=== PATIENT | female | born 2000 | race Two or more races ===

== ENCOUNTER → 2024-10-24 | Outpatient (CLI) | payer BC, SELFPAY ==
--- NOTE | 2024-10-24 12:00 | XR_ITS ---
Examination: MRI brain without intravenous contrast. Date and time of exam: November 03, 2024 1115 hrs. Indications: Right-sided headaches with dizziness vertigo one year worse the last 2 months Technique: Multiple axial and sagittal images of the brain obtained. Siemens high-resolution 1.5 Ignacia short bore scanners utilized. Sagittal sections, T1-weighted, TR 500, TE 14, are performed. Axial sections proton-density and T2-weighted have been obtained. Inversion recovery axial images, TR 9, 260, TE 111, TI 2500. 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
== END | disposition home or self-care (01) ==
PROVIDERS: PCP Nurse Practitioner Family; Referring Provider Nurse Practitioner Family; Visit Provider Nurse Practitioner Family
DX: R22.0 Localized swelling, mass and lump, head (principal)
CPT/HCPCS: 70551

== ENCOUNTER → 2024-10-27 | Outpatient (BNVA) | payer BC, SELFPAY | END | disposition home or self-care (01) | PROVIDERS: PCP Nurse Practitioner Family; Referring Provider Nurse Practitioner Family; Visit Provider Nurse Practitioner Family | DX: G43.919 Migraine, unspecified, intractable, without status migrainosus (principal); Z71.2 Person consulting for explanation of examination or test findings; Z01.810 Encounter for preprocedural cardiovascular examination; G93.0 Cerebral cysts | CPT/HCPCS: 99212; G0463 ==

== ENCOUNTER → 2024-12-10 | Outpatient (CLI) | payer BC, SELFPAY ==
--- NOTE | 2024-12-10 11:00 | XR_ITS ---
Examination: CT brain head with intravenous contrast 2-D sagittal reconstructions. 2-D coronal reconstructions. 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 Post intravenous administration 50 cc Isovue-370 5 mm slice thickness images have been obtained. Low dose protocols were performed. One or more of the following dose reduction techniques were used; automated exposure control, adjustment of the mA and/or KV according to patient size, use of iterative reconstruction technique. Findings: Ventricles are normal in size and configuration No midline shift The mass noted on the brain MRI examination anterior to the brainstem is not clearly depicted on this study Cranial vault appears intact IMPRESSION: This patient should return for brain MRI images post contrast including small [id number] high-resolution images centered at the prepontine cistern
[2024-12-10 12:26] LABS: HCG Qualitative,Urine Negative
== END | disposition home or self-care (01) ==
PROVIDERS: PCP Nurse Practitioner Family; Referring Provider Nurse Practitioner Family; Visit Provider Nurse Practitioner Family
DX: D33.2 Benign neoplasm of brain, unspecified (principal); Z32.00 Encounter for pregnancy test, result unknown
CPT/HCPCS: 70460; 81025; A4649; Q9967

== ENCOUNTER → 2024-12-11 | Outpatient (BNVA) | payer BC, SELFPAY | END | disposition home or self-care (01) | PROVIDERS: PCP Nurse Practitioner Family; Referring Provider Nurse Practitioner Family; Visit Provider Nurse Practitioner Family | DX: N91.1 Secondary amenorrhea (principal) | CPT/HCPCS: 99212; G0463 ==

== ENCOUNTER → 2024-12-18 | Outpatient (BNVA) | payer BC, SELFPAY | END | disposition home or self-care (01) | PROVIDERS: PCP Nurse Practitioner Family; Referring Provider Nurse Practitioner Family; Visit Provider Nurse Practitioner Family | DX: D33.2 Benign neoplasm of brain, unspecified (principal); Z30.011 Encounter for initial prescription of contraceptive pills; Z71.2 Person consulting for explanation of examination or test findings | CPT/HCPCS: 99214 ==

== ENCOUNTER → 2025-04-14 | Outpatient (BNVA) | payer BC, SELFPAY | END | disposition home or self-care (01) | PROVIDERS: PCP Nurse Practitioner Family; Referring Provider Nurse Practitioner Family; Visit Provider Nurse Practitioner Family | DX: R00.2 Palpitations (principal); Z30.011 Encounter for initial prescription of contraceptive pills | CPT/HCPCS: 81025; 99213 ==

== ENCOUNTER → 2025-05-10 | Outpatient (CLI) | payer BC, SELFPAY ==
[2025-03-31 15:12] LABS: HCG Qualitative,Urine Negative
[2025-05-10 12:22] LABS: HCG Qualitative,Urine Negative
--- NOTE | 2025-05-10 12:26 | XR_ITS ---
Examination: MRI brain with intravenous contrast TECHNIQUE: Multiple axial sagittal coronal brain MRI images post intravenous administration 18 cc gadolinium Date and time: May 10, 2025 1228 hours COMPARISON: CT brain scan December 10, 2024, brain MRI October 24, 2024 INDICATIONS: Headaches dizziness beginning July 2024, 19 x 12 x 28 mm ovoid mass anterior to the brainstem on FLAIR image 8 on brain MRI October 24, 2024 FINDINGS: Nonenhancing ovoid mass 19 x 12 x 28 mm is again noted anterior to the brainstem axial image 10, coronal image 11 The ventricles are not enlarged No abnormal enhancing cerebellar or cerebral lesions IMPRESSION: Nonenhancing cystic area 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
== END | disposition home or self-care (01) ==
LOC: SMRI 11:44
PROVIDERS: PCP Nurse Practitioner Family; Referring Provider Nurse Practitioner Family; Visit Provider Nurse Practitioner Family
DX: D33.2 Benign neoplasm of brain, unspecified (principal)
CPT/HCPCS: 70552; 81025; A9579

== ENCOUNTER 2025-05-11 08:51 | Outpatient (AMB) | payer BC, SELFPAY ==
--- NOTE | 2025-05-11 08:56 | GYNCLNT_ITS ---
Vital Signs 05/11/25 09:05 Height 1.73 m Height Method Stated Weight 92.703 kg Weight Measurement Method Standing Scale BMI 30.9 BP 112/78 Blood Pressure Source Automatic Cuff Blood Pressure Location Right Upper Arm Position Sitting Respiration 17 Pulse 80 Pulse Source Monitor Temp 97.8 F Temp Source Temporal Artery Scan Pulse Oximetry (%) 98 Oxygen Delivery Method Room Air Allergies/Home Meds Allergies & Medications Allergies No Known Allergies Allergy (Verified 06/11/25 09:33) Medication Reconciliation propranolol 20 mg tablet 20 mg PO BID 90 days #180 tabs 04/14/25 [Rx Confirmed 06/11/25] Intake Visit Data Collection New Patient or Established: Established Patient (seen at [facility] within 3 years) Reason for Visit:: IRREGULAR MENSES Seen by Clinical Staff ONLY (RN/MA): No Workers' Compensation Mediator Required: No Do You Feel Safe at Home: Yes Authorities Contacted: N/A PCP or OBGYN visit in last 3 months: Yes Date of Last PCP or OBGYN visit: 04/14/25 Hx Now: No Are you currently on any form of Control: Yes Last menstrual period: 05/08/25 Pain Present Currently: No Pain Scale Used: Johnson-Garrido/Numerical Pain scale:: 0 Smoking Status Smoking Status: Never smoker 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 1. Little interest or pleasure in doing things: not at all 2. Feeling down, depressed, or hopeless: not at all Total score: 0 PHQ-9 3. Trouble falling or staying asleep, or sleeping too much: Not at all 4. Feeling tired or having little energy: Not at all 5. Poor appetite or overeating: Not at all 6. Feeling bad about yourself - or that you are a failure or have let yourself or your family down: Not at all 7. Trouble concentrating on things, such as reading the newspaper or watching television: Not at all 8. Moving or speaking so slowly that other people could have noticed? - Or the opposite - being so fidgety or restless that you have been moving around a lot more than usual: not at all 9. Thoughts that you would be better off or of hurting yourself in some way: Not at all Total score: 0 If you checked off any problems, how difficult have these problems made it for you to do your work, take care of things at home, or get along with other people?: not difficult at all Source: Developed by Drs. Wellington Barrios, Allison Harry, Lamberto Mccarthy and colleagues, with an educational siri from [employer]. Depression screen completed yes Social History Living Situation History Marital Status: Lives With: Family Housing: House Tobacco History Smoking Status: Never smoker Second Hand Smoke Exposure: No Alcohol History Alcohol Intake: Current Alcohol Intake Frequency: holidays/special occasions only Substance Use History Substance Use: NONE Domestic Abuse History Do You Feel Safe at Home: Yes History of Present Illness HPI Narrative Radha Baker, a 24-year-old female with a history of in 2021, presents with irregular menses and difficulty conceiving. The patient reports that her menstrual irregularities began approximately one year ago, with her periods becoming very light about 3-4 months prior to completely stopping in November 2024. Prior to the onset of these irregularities, Radha states she had regular 30-day menstrual cycles. She was prescribed control pills by her primary care physician, Dr. Bailey, to regulate her cycle. The first period after starting the pills lasted about 11 days. However, Radha reports that her periods have re mained inconsistent since then. She describes her current menstrual pattern as having light bleeding for 2 days the week before her expected period, followed by a very light actual period. Radha mentions that she is currently trying to conceive. She was recently prescribed control pills again in March 2025 due to not getting her period fully. However, she reports taking the pills inconsistently and completely stopping them after experiencing bleeding on April 30 and 2024. The patient also discloses a history of an early miscarriage a couple of months after giving to her daughter in 2021. She was prescribed medication by Dr. Philip to assist with the miscarriage process. Radha denies any history of ovarian cysts or fibroids. Obstetric History: - GTPAL: G3 T1 L1 - Current : Not currently - history: - Early miscarriage a few months after giving in 2021 - Delivered a child via in 2021 Medical History: - Early miscarriage a few months after giving Surgical History: - section in 2021 Medications and Supplements: - Progesterone-only mini-pill (tolerates well, stopped taking on May 01, 2025) - control pills (initially resulted in an 11-day period, then became inconsistent, stopped taking to try to conceive) - Medication prescribed by Dr. Philip for early miscarriage (taken a few months after giving ) Social History: - Children: Has at least one child born in 2021 ROS: Genitourinary: Positive for irregular menses, light menstrual flow, and amenorrhea. Exam General General Appearance: alert, in no apparent distress and healthy appearing Head Head exam: atraumatic Neck Neck exam: Present normal inspection and trachea midline Chest Chest inspection: Present normal inspection and symmetric chest wall rise External exam: Present normal external exam; Absent tenderness Neuro Neurological exam: Present oriented X3 Psych Psychiatric exam: Present normal affect and normal mood Office Procedures OB Clinic LOC & Office Proc's Nursing/Assessment Patient Status: Established Patient OB Clinic Nursing Assessment: Medication Reconciliation, Update PMH in EMR and Vital Signs OB Clinic Coordination of Care: Complex Care and Chronic Disease 1-5, Con sent,records obtained, informed consent, Education Simp Pt/Fam and Staff clarify orders Established Patient Charge Established Patient Point Assignment: 85 Established Patient Point Charge: EP Level 3 (80-115) Assessment & Plan Diagnosis / Problem List (1) Abnormal uterine and vaginal bleeding, unspecified: Status: Acute Plan Irregular Menses Assessment: Patient reports irregular menses since November 2024, with periods becoming light and eventually stopping. This pattern suggests an anovulatory cycle. Patient was previously prescribed progesterone-only mini-pill by her PCP, which she has been taking inconsistently. Last menstrual period was on April 302024, described as very light. Plan: - Discontinue current progesterone-only mini-pill - Prescribe new medication for 3 weeks to regulate menstrual cycle ? Patient instructed to take only the newly prescribed medication - Order hormone panel blood tests to be conducted on first or second day of next menstrual period ? Tests to include DHE, FSH, LH, TSH - Follow-up appointment scheduled in 4 weeks to review blood test results - Based on hormone levels, plan to initiate ovulation induction medication (Clomid or Femara) - Counseled patient on expected bleeding patterns and timing for blood tests Subfertility Assessment: Patient expresses desire to conceive. Current irregular menses and anovulatory cycles are impacting fertility. Previous obstetrical history includes one child delivered via in 2021 and an early miscarriage. No known history of cysts or fibroids. Plan: - Complete hormone evaluation as outlined in irregular menses plan - Defer ultrasound evaluation at this time - Plan to initiate ovulation induction medication (Clomid or Femara) based on hormone panel results - Educate patient on importance of consistent medication use and timing of intercourse for conception - Follow-up appointment in 4 weeks to discuss results and initiate fertility treatment plan
[2025-05-11 09:05] VITALS: BP 112/78; PULSE 80; RESP 17; TEMP 36.6; O2SAT 98; BMI 30.9
== END 2025-05-11 09:55 | disposition home or self-care (01) ==
LOC: HODSOBC 08:51
PROVIDERS: PCP Nurse Practitioner Family; Referring Provider Nurse Practitioner Family; Supervising Provider Obstetrics & Gynecology; Visit Provider Obstetrics & Gynecology
DX: N92.6 Irregular menstruation, unspecified (principal)
CPT/HCPCS: 99213; G0463

== ENCOUNTER → 2025-05-19 | Outpatient (BNVA) | payer BC, SELFPAY | END | disposition home or self-care (01) | PROVIDERS: PCP Nurse Practitioner Family; Referring Provider Nurse Practitioner Family; Visit Provider Nurse Practitioner Family | DX: G93.0 Cerebral cysts (principal); E78.2 Mixed hyperlipidemia | CPT/HCPCS: 99212; G0463 ==

== ENCOUNTER → 2025-05-31 | Outpatient (BNVA) | payer BC, SELFPAY | END | disposition home or self-care (01) | PROVIDERS: PCP Nurse Practitioner Family; Referring Provider Nurse Practitioner Family; Visit Provider Nurse Practitioner Family | DX: Z00.01 Encounter for general adult medical examination with abnormal findings (principal); M41.9 Scoliosis, unspecified; R73.03 Prediabetes; E78.2 Mixed hyperlipidemia; E66.9 Obesity, unspecified; Z68.30 Body mass index [BMI] 30.0-30.9, adult; E55.9 Vitamin D deficiency, unspecified; R00.2 Palpitations; G43.909 Migraine, unspecified, not intractable, without status migrainosus | CPT/HCPCS: 99173; 99215 ==

== ENCOUNTER → 2025-06-07 | Outpatient (BNVA) | payer BC, SELFPAY | END | disposition home or self-care (01) | PROVIDERS: PCP Nurse Practitioner Family; Referring Provider Nurse Practitioner Family; Visit Provider Nurse Practitioner Family | DX: E01.0 Iodine-deficiency related diffuse (endemic) goiter (principal); J02.9 Acute pharyngitis, unspecified; R13.10 Dysphagia, unspecified | CPT/HCPCS: 87811; 99215 ==

== ENCOUNTER → 2025-06-14 | Outpatient (BNVA) | payer BC, SELFPAY | END | disposition home or self-care (01) | PROVIDERS: PCP Nurse Practitioner Family; Referring Provider Nurse Practitioner Family; Visit Provider Nurse Practitioner Family | DX: Z71.2 Person consulting for explanation of examination or test findings (principal); E01.0 Iodine-deficiency related diffuse (endemic) goiter; R13.10 Dysphagia, unspecified; E78.2 Mixed hyperlipidemia | CPT/HCPCS: 99212; G0463 ==

== ENCOUNTER 2025-06-18 09:06 | Outpatient (AMB) | payer BC, SELFPAY ==
[2025-06-18 09:13] VITALS: BP 111/75; PULSE 90; RESP 17; TEMP 36.4; O2SAT 97; BMI 30.6
--- NOTE | 2025-06-18 09:13 | GYNCLNT_ITS ---
Vital Signs 06/18/25 09:13 Height 1.73 m Height Method Measured Weight 91.626 kg Weight Measurement Method Standing Scale BMI 30.6 BP 111/75 Blood Pressure Source Automatic Cuff Blood Pressure Location Right Upper Arm Position Sitting Respiration 17 Pulse 90 Pulse Source Monitor Temp 97.5 F Temp Source Temporal Artery Scan Pulse Oximetry (%) 97 Oxygen Delivery Method Room Air Allergies/Home Meds Allergies & Medications Allergies No Known Allergies Allergy (Verified 06/18/25 09:13) Medication Reconciliation propranolol 20 mg tablet 20 mg PO BID 90 days #180 tabs 04/14/25 [Rx Confirmed 06/18/25] ergocalciferol (vitamin D2) 1,250 mcg (50,000 unit) capsule 50,000 unit PO QWEEK 12 weeks #12 caps 06/14/25 [Rx Confirmed 06/18/25] estradiol 1 mg tablet 1 mg PO QDAY 7 days #7 tabs 06/18/25 [Rx] medroxyprogesterone 10 mg tablet (Provera) 10 mg PO QDAY 7 days #7 tabs 06/18/25 [Rx] ondansetron 4 mg disintegrating tablet 4 mg PO Q6H PRN nausea and vomiting 7 days #20 tabs 06/18/25 [Rx] Intake Visit Data Collection New Patient or Established: Established Patient (seen at [facility] within 3 years) Reason for Visit:: AUB, Secondary Amenorrhea Consent obtained for Telemed Visit: No Seen by Clinical Staff ONLY (RN/MA): No 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: No Do You Feel Safe at Home: Yes Authorities Contacted: N/A PCP or OBGYN visit in last 3 months: Yes Date of Last PCP or OBGYN visit: 06/11/25 Hx Now: No Are you currently on any form of Control: No Last menstrual period: 04/30/25 Pain Present Currently: No Pain Scale Used: Johnson-Garrido/Numerical Pain scale:: 0 Smoking Status Smoking Status: Never smoker 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 1. Little interest or pleasure in doing things: not at all PHQ-9 8. Moving or speaking so slowly that other people could have noticed? - Or the opposite - being so fidgety or restless that you have been moving around a lot more than usual: not at all Source: Developed by Drs. Wellington Barrios, Allison Harry, Lamberto Mccarthy and colleagues, with an educational siri from [employer]. Social History Living Situation History Lives With: Family Housing: House Tobacco History Smoking Status: Never smoker Second Hand Smoke Exposure: No Alcohol History Alcohol Intake: Current Alcohol Intake Frequency: holidays/special occasions only Substance Use History Substance Use: NONE Domestic Abuse History Do You Feel Safe at Home: Yes History of Present Illness HPI Narrative Patient reports that she has not had a menstrual period since stopping her control pills about a month and a half ago. She was previously given progesterone medication to induce menstruation, which she took for an unspecified number of days, but this did not result in a period. Due to the absence of menstruation, the patient has not completed the previously recommended laboratory tests for fertility evaluation. She is a female patient presenting for follow-up of infertility evaluation. She was last seen approximately one month ago after discontinuing her progesterone- only minipill. Radha has not reported any other symptoms or concerns related to her fertility or general health. She has adhered to the recommendation of discontinuing her control but has been unable to proceed with further testing due to the absence of her menstrual cycle. She has discontinued the progesterone-only minipill and has taken progesterone for an unspecified number of days, which did not induce menstruation. Exam General General Appearance: alert, in no apparent distress and healthy appearing Head Head exam: atraumatic Neck Neck exam: Present normal inspection and trachea midline Chest Chest inspection: Present normal inspection and symmetric chest wall rise External exam: Present normal external exam; Absent tenderness Neuro Neurological exam: Present oriented X3 Psych Psychiatric exam: Present normal affect and normal mood Office Procedures OB Clinic LOC & Office Proc's Nursing/Assessment Patient Status: Established Patient OB Clinic Nursing Assessment: Medication Reconciliation, Update PMH in EMR and Vital Signs OB Clinic Coordination of Care: Complex Care and Chronic Disease 1-5, Consent,records obtained, informed consent, Education Simp Pt/Fam and Staff clarify orders Established Patient Charge Established Patient Point Assignment: 85 Established Patient Point Charge: EP Level 3 (80-115) Results Urine HCG Urine HCG Negative Last Edit by Rebecca Anthony MA on 06/18/25 09:38 Assessment & Plan Diagnosis / Problem List (1) Abnormal uterine and vaginal bleeding, unspecified: Status: Acute Plan Secondary amenorrhea: - Patient discontinued progesterone-only minipill approximately 1.5 months ago. - No menstrual period since discontinuation. - test during visit was negative. - Previous attempt to induce menses with progesterone-only medication unsuccessful. - Prescribe combination estrogen and progesterone medication for 7 days. - Instruct patient to call if menses does not occur within 2 days after completing medication course. - If menses occurs, patient to complete previously ordered blood tests and return for follow-up. - Prescribe Zofran for potential nausea associated with hormonal medication. - Send prescriptions to [facility] pharmacy. Infertility: - Patient undergoing infertility evaluation. - Previous recommendations included laboratory testing and potential ovulation induction with Clomid or Femara. - Steps deferred due to lack of menstrual cycle. - Proceed with previously ordered laboratory tests once menstrual cycle is established. - Follow up to discuss lab results and potential initiation of ovulation sydnie ction therapy (Clomid or Femara).
== END 2025-06-18 09:49 | disposition home or self-care (01) ==
LOC: HODSOBC 09:06
PROVIDERS: Supervising Provider Obstetrics & Gynecology; Visit Provider Obstetrics & Gynecology
DX: N93.9 Abnormal uterine and vaginal bleeding, unspecified (principal); N97.9 Female infertility, unspecified
CPT/HCPCS: 99213; G0463

== ENCOUNTER → 2025-07-05 | Outpatient (CLI) | payer BC, SELFPAY ==
[2025-07-05 16:13] LABS: Basophils # (Auto) 0.0 Thou/mm3 (0.0-0.2); Basophils % (Auto) 0 % (0-2.5); Eosinophils # (Auto) 0.2 Thou/mm3 (0.0-0.5); Eosinophils % (Auto) 2 % (0-10); Hematocrit 38.0 % (36.0-46.0); Hemoglobin 12.3 g/dL (12.0-16.0); Immature Granulocytes Auto 0.03 Thou/mm3 (0.00-0.00); Lymphocytes # (Auto) 3.1 Thou/mm3 (1.0-4.8); Lymphocytes % (Auto) 33 % (10-50); Mean Corpuscular HGB Conc 32.4 g/dl (31.0-37.0); Mean Corpuscular Hemoglobin 26.1 pg (25.0-35.0); Mean Corpuscular Volume 81 fL (80-100); Monocytes # (Auto) 0.6 Thou/mm3 (0.0-0.8); Monocytes % (Auto) 6 % (0-12); Neutrophils # (Auto) 5.6 Thou/mm3 (1.8-7.7); Neutrophils % (Auto) 59 % (37-80); Nucleated Red Blood Cell # 0.00 Thou/mm3 (0.00-0.00); Nucleated Red Blood Cell % 0 /100 WBC (0); Platelet Count 201 Thou/mm3 (140-440); RDW Standard Deviation 36.0 fL (36.4-46.3); Red Blood Count 4.71 Miln/mm3 (4.00-5.20); White Blood Count 9.6 Thou/mm3 (3.6-11.0)
[2025-07-05 16:24] LABS: Alanine Aminotransferase 14 U/L (10-49); Albumin, Serum 4.6 gm/dL (3.5-5.0); Albumin/Globulin Ratio 1.6 (1.2-2.2); Alkaline Phosphatase 116 U/L (46-116); Anion Gap 12 (7-16); Aspartate Amino Transferase 18 U/L (0-34); BUN/Creatinine Ratio 13 Ratio (12-20); Bilirubin,Total 0.3 mg/dL (0.3-1.2); Blood Urea Nitrogen 8 mg/dL (9-23); Calcium 10.2 mg/dL (8.3-10.6); Calcium (Corrected) 10.2 mg/dL (8.5-10.1); Carbon Dioxide 24.9 mMol/L (20.0-31.0); Chloride 102 mMol/L (98-107); Creatinine (Component) 0.6 mg/dL (0.6-1.3); Follicle Stimulating Hormone 7.44 mIU/mL (See Note); Free T3 3.1 pg/mL (2.3-4.2); Free T4 (Free Thyroxine) 1.26 ng/dL (0.89-1.76); Globulin 2.8 gm/dL (2.3-3.5); Glucose 82 mg/dL (74-106); Osmolality,Calculated 274 (275-295); Potassium 3.8 mMol/L (3.4-5.1); Sodium 139 mMol/L (136-145); Total Protein 7.4 gm/dL (5.7-8.2); eGFR > 60 See Note
[2025-07-05 19:19] LABS: Glucose Estimated Average 117 mg/dL (80-131); Hemoglobin A1C 5.7 % Hgb (4.8-6.0)
[2025-07-12 06:56] LABS: DHEA Sulfate* 93 mcg/dL (18-391); Thyroid Peroxidase Antibodies* <1 IU/mL (<9)
== END | disposition home or self-care (01) ==
LOC: COPL 14:54
PROVIDERS: PCP Nurse Practitioner Family; Referring Provider Obstetrics & Gynecology; Visit Provider Obstetrics & Gynecology
DX: N93.9 Abnormal uterine and vaginal bleeding, unspecified (principal)
CPT/HCPCS: 36415; 80053; 82627; 83001; 83036; 84439; 84481; 85025; 86376

== ENCOUNTER 2025-08-03 14:15 | Outpatient (AMB) | payer BC, SELFPAY ==
--- NOTE | 2025-08-03 14:28 | GYNCLNT_ITS ---
Vital Signs 08/03/25 14:30 Height 1.73 m Height Method Stated Weight 92.306 kg Weight Measurement Method Standing Scale BMI 30.8 BP 116/79 Blood Pressure Source Automatic Cuff Blood Pressure Location Left Upper Arm Position Sitting Respiration 16 Pulse 90 Pulse Source Monitor Temp 97.2 F Temp Source Oral Pulse Oximetry (%) 98 Oxygen Delivery Method Room Air Allergies/Home Meds Allergies & Medications Allergies No Known Allergies Allergy (Verified 08/03/25 14:31) Medication Reconciliation ergocalciferol (vitamin D2) 1,250 mcg (50,000 unit) capsule 50,000 unit PO QWEEK 12 weeks #12 caps 06/14/25 [Rx Confirmed 08/03/25] propranolol 20 mg tablet 20 mg PO BID 90 days #180 tabs 07/12/25 [Rx Confirmed 08/03/25] clomiphene citrate 50 mg tablet 50 mg PO QDAY 5 days #5 tabs 08/03/25 [Rx] medroxyprogesterone 10 mg tablet (Provera) 10 mg PO QDAY 7 days #7 tabs 08/03/25 [Rx] Intake Visit Data Collection New Patient or Established: Established Patient (seen at [facility] within 3 years) Reason for Visit:: FOLLOW UP Seen by Clinical Staff ONLY (RN/MA): No 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 Do You Feel Safe at Home: Yes Authorities Contacted: N/A PCP or OBGYN visit in last 3 months: Yes Date of Last PCP or OBGYN visit: 06/18/25 Hx Now: No Are you currently on any form of Control: No Last menstrual period: 07/03/25 Smoking Status Smoking Status: Never smoker 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 1. Little interest or pleasure in doing things: not at all 2. Feeling down, depressed, or hopeless: not at all Total score: 0 PHQ-9 3. Trouble falling or staying asleep, or sleeping too much: Not at all 4. Feeling tired or having little energy: Not at all 5. Poor appetite or overeating: Not at all 6. Feeling bad about yourself - or that you are a failure or have let yourself or your family down: Not at all 7. Trouble concentrating on things, such as reading the newspaper or watching television: Not at all 8. Moving or speaking so slowly that other people could have noticed? - Or the opposite - being so fidgety or restless that you have been moving around a lot more than usual: not at all 9. Thoughts that you would be better off or of hurting yourself in some way: Not at all Total score: 0 If you checked off any problems, how difficult have these problems made it for you to do your work, take care of things at home, or get along with other people?: not difficult at all Source: Developed by Drs. Wellington Barrios, Allison Harry, Lamberto Mccarthy and colleagues, with an educational siri from [employer]. Depression screen completed yes Social History Living Situation History Lives With: Family Housing: House Tobacco History Smoking Status: Never smoker Second Hand Smoke Exposure: No Alcohol History Alcohol Intake: Current Alcohol Intake Frequency: holidays/special occasions only Substance Use History Substance Use: NONE Domestic Abuse History Do You Feel Safe at Home: Yes History of Present Illness HPI Narrative aRdha Malhotra presents for follow-up of infertility treatment. She was previously on a progesterone-only minipill, which was discontinued without return of menstrual cycles. A combination challenge was given at her initial evaluation. The patient reports that she did not experience bleeding after the initial combination challenge. 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 She had a blood draw on Saturday. Radha reports that her most recent menstrual period lasted from the 16 to the of last month. She mentions that from April 2024 to November, she did not have any menstrual periods and was not on control during that time. Radha expresses concern about her fertility and inquires about sperm count, suggesting a desire for . She demonstrates engagement in her treatment plan by following up on prescribed medications and attending this appointment for further evaluation and management of her infertility. She is a patient with an obstetric history of A0 L0. ROS: Genitourinary: Positive for light menstrual bleeding. Exam General General Appearance: alert, in no apparent distress and healthy appearing Head Head exam: atraumatic Neck Neck exam: Present normal inspection and trachea midline Chest Chest inspection: Present normal inspection and symmetric chest wall rise External exam: Present normal external exam; Absent tenderness Neuro Neurological exam: Present oriented X3 Psych Psychiatric exam: Present normal affect and normal mood Office Procedures OB Clinic LOC & Office Proc's Nursing/Assessment Patient Status: Established Patient OB Clinic Nursing Assessment: Medication Reconciliation, Update PMH in EMR and Vital Signs OB Clinic Coordination of Care: Education Complex Pt/Fam, Consent,records obtained, informed consent, Lab and Imaging orders, Results/Orders obtained and Staff clarify orders Established Patient Charge Established Patient Point Assignment: 85 Established Patient Point Charge: EP Level 3 (80-115) Assessment & Plan Diagnosis / Problem List (1) Abnormal uterine and vaginal bleeding, unspecified: Status: Acute Plan Infertility: - Patient discontinued progesterone-only minipill without return of menstrual cycles. - Combination challenge resulted in light bleeding from to of last month. - Hormonal panel shows FSH 7.4 (normal), DHEA negative at 93,400 or more (indicative of PCOS), and A1c 5.7. - History of amenorrhea from April 2024 to November without control use. - The minipill likely suppressed ovulation. Plan: - Wait 35 days from last period (around - of this month). - Perform test before initiating medication. - Order ultrasound. - Prescribe medication to initiate period if test is negative. - After period initiation, prescribe ovulation medication (Clomid or Femara). - Instruct patient to track ovulation and time intercourse within 24 to 48 hours of ovulation. - Provide written instructions for medication and intercourse timing.
[2025-08-03 14:30] VITALS: BP 116/79; PULSE 90; RESP 16; TEMP 36.2; O2SAT 98; BMI 30.8
== END 2025-08-03 14:59 | disposition home or self-care (01) ==
LOC: HODSOBC 14:15
PROVIDERS: Supervising Provider Obstetrics & Gynecology; Visit Provider Obstetrics & Gynecology
DX: N93.9 Abnormal uterine and vaginal bleeding, unspecified (principal); N97.9 Female infertility, unspecified
CPT/HCPCS: 99213; G0463

== ENCOUNTER → 2025-08-11 | Outpatient (CLI) | payer BC, SELFPAY ==
--- NOTE | 2025-08-11 15:03 | XR_ITS ---
Examination: Scoliosis survey 2, views. Technique: AP standing thoracic, AP standing lumbar spine, two views. Exam date and time: August 11, 2025 1513 hours, comparison May 11, 2015 Findings: Upper thoracic levoscoliosis 19 degrees Thoracolumbar dextroscoliosis 18 degrees Lumbar levoscoliosis 12 degrees IMPRESSION: No significant change in scoliosis compared with May 11, 2015
== END | disposition home or self-care (01) ==
LOC: CDIM 14:57
PROVIDERS: PCP Nurse Practitioner Family; Referring Provider Nurse Practitioner Family; Visit Provider Nurse Practitioner Family
DX: M41.84 Other forms of scoliosis, thoracic region (principal); M41.85 Other forms of scoliosis, thoracolumbar region
CPT/HCPCS: 72082